=== PATIENT | male | born 1980 | race Caucasian/White ===

== ENCOUNTER 2021-10-30 14:38 | Emergency (ER) | payer BC, SELFPAY ==
[2021-10-30] VITALS (9 sets, daily range): BP systolic 161–189; BP diastolic 85–115; PULSE 85–101; RESP 17–23; TEMP 36.4; O2SAT 97–98; BMI 48.6
--- NOTE | 2021-10-30 15:04 | EKG12_ITS ---
Test Reason : CP Blood Pressure : / mmHG Vent. Rate : 098 BPM Atrial Rate : 098 BPM P-R Int : 146 ms QRS Dur : 100 ms QT Int : 368 ms P-R-T Axes : 059 -55 098 degrees QTc Int : 469 ms Normal sinus rhythm Left anterior fascicular block T wave abnormality, consider lateral ischemia Abnormal ECG Confirmed by MARCO KENT, HRODA ([id number]), multimedia editor PRADIP ESQUIVEL ([id number]) on 11/03/2021 11:28:50 AM Referred By: ESTELLA/KALIN Confirmed By:RHODA LARA MD
[2021-10-30] MEDS: Aspirin 81 MG TAB.CHEW 324 MG PO (15:11)
--- NOTE | 2021-10-30 15:15 | RAD_ITS ---
STUDY: X-RAY CHEST REASON FOR EXAM: Male, 41 years old. Chest pain TECHNIQUE: Single AP portable view of the chest. COMPARISON: None. FINDINGS: EKG electrodes are seen. The lungs are clear and expanded. There is no demonstrated pleural abnormality. Normal size heart. Normal mediastinum and katie. Normal visualized pulmonary arteries. Normal visualized aortic arch and descending thoracic aorta. There are degenerative changes of the visualized thoracic spine. Normal visualized ribs, clavicles, and shoulders. There is no demonstrated abnormality of the visualized soft tissue structures of the upper abdomen. RAD/Chest 1 View (Portable) IMPRESSION: Normal x-ray examination of the chest. Electronically Signed: Alexi Foster MD at 15:25 EST , Service support ,
[2021-10-30 15:19] LABS: Absolute Lymphocyte Count 2.98 X10^3/uL (0.83-4.51); Absolute Neutrophil Count 3.8 X10^3/uL (2.0-7.7); Basophil# 0.07 X10^3/uL; Basophil% 0.9 % (0-1); Eosinophil# 0.17 X10^3/uL; Eosinophils% 2.2 % (0-5); Hematocrit 44.6 % (40-54); Hemoglobin 15.3 g/dL (13.0-16.5); Lymphocyte # 2.98 X10^3/ul (0.83-4.51); Lymphocyte % 38.7 % (19-41); Mean Corp Hgb Conc 34.3 g/dL (32-36); Mean Corpuscular Hgb 28.9 pg (27.0-32.0); Mean Corpuscular Volume 84.2 fL (80-94); Monocyte# 0.67 X10^3/uL; Monocyte% 8.7 % (0-10); NRBC Flagged by Analyzer 0 % (0-5); Neutrophil # 3.76 X10^3/uL (2.7-7.7); Neutrophil % 48.7 % (47-70); Platelet Count 187 K/mm3 (150-450); RBC Distribution Width SD 42.2 fl (35.1-43.9); White Blood Count 7.7 K/mm3 (4.4-11.0)
--- NOTE | 2021-10-30 15:26 | EDS_ITS ---
HPI History of Present Illness Chief Complaint: Chest Pain Detail of Chief Complaint: Chest tightness with dyspnea while walking Informant: patient Onset/Context/Timing Onset: Today (At approximately 1300.) Activity at onset: sudden and light activity Timing: Intermittent (Duration approximately 30 minutes) Quality: Positive for Pressure and Tightness Location: Substernal Current Severity: Gone Maximum Severity: Moderate Worsened By: Nothing Associated Symptoms: Positive for Diaphoresis and Dyspnea; Negative for Nausea, Vomiting, Cough, Fever, Lightheadedness and Acid Reflux Narrative Narrative: Patient is a 41-year-old male with history of hypertension, hypercholesterolemia on no medication who smokes several cigarettes per week. He states 5 years ago he smoked 1 pack/day. Mother had an DC at the age of 68. There is a family history of heart disease but he is unable to tell me at which age. He has had pressure-like sensation that has occurred a couple times a week recently. Those episodes he reports occurred at rest. He denies history of VTE. He has no risk factors for VTE. He denies leg pain, swelling discoloration. He denies symptoms of claudication. He denies history of hiatal hernia, peptic ulcer disease or GERD. He denies intolerance to greasy or fried foods. He denies radiation of the pain. He does not know whether he was pale. When the chest tightness started he went to his office. He sat down. He still was having difficulty breathing and removed his mask. Even after removing his mask he still had shortness of breath that lasted approximately 20 minutes. Prior Similar Symptoms: No Recent Illness/Hospitalization: No CVD Risk Factors: Positive for Hypertension, Hypercholesterolemia and Smoking; Negative for Diabetes and Family History 1' </=55 PE Risk Factors: Negative for Recent Travel/Surgery, Recent Immobilization, Prior DVT or PE and Cancer TAD Risk Factors: Positive for Hypertension; Negative for Marfan's Syndrome and Family History [facility] Medical History Hypertension Home Medications hydrochlorothiazide 12.5 mg PO DAILY #30 tab 10/30/21 [Rx Last Taken Unknown] lisinopril 10 mg PO DAILY #30 tab 10/30/21 [Rx Last Taken Unknown] Allergy/AdvReac Type Severity Reaction Status Date / Time No Known Allergies Allergy Verified 10/30/21 14:47 Social History (Updated 10/30/21 @ 15:[address] Yair Velarde MD) household members: spouse and children Smoking Status: Former smoker alcohol intake: current substance use type: does not use ROS ROS ED Constitutional Constitutional ED: Denies chills, fever(s), subjective, sweats or weight loss Eyes Eyes: Denies blurry vision, change in vision or diplopia ENT ENT ED: Denies ear pain, rhinorrhea or sore throat Cardiovascular Cardiovascular: Reports as per HPI; Denies orthopnea or paroxysmal nocturnal dyspnea Respiratory/Chest Respiratory/Chest: Reports dyspnea; Denies cough, dyspnea on exertion, orthopnea, paroxysmal nocturnal dyspnea or sputum Gastrointestinal Gastrointestinal: Denies abdominal pain, constipation, diarrhea, nausea or vomiting Genitourinary Genitourinary ED: Denies dysuria, hematuria or urinary frequency Musculoskeletal Musculoskeletal: Denies arthralgias, back pain, myalgias, neck pain or other Neurologic Neurologic: Denies headache(s), paresthesias or weakness Endocrine Endocrinology: Denies polydipsia, polyphagia or polyuria Hematologic/Lymphatic Hematologic/Lymphatic: Denies easy bleeding or easy bruising EXAM Physical Exam Const Vital Signs: 10/30/21 14:39 10/30/21 14:48 10/30/21 15:07 Temperature 97.6 F L Temperature Source Oral Pulse Rate 101 H Respiratory Rate 17 Respiratory Effort Normal Non-Labored Blood Pressure 168/115 H Blood Pressure Mean 132 Pulse Ox 98 Oxygen Delivery Method Room Air Room Air 10/30/21 15:08 10/30/21 15:38 10/30/21 16:02 Temperature Temperature Source Pulse Rate 93 87 Respiratory Rate 23 H 21 H Respiratory Effort Blood Pressure 177/103 H 161/94 H 169/105 H Blood Pressure Mean 127 116 126 Pulse Ox Oxygen Delivery Method Room Air Room Air Room Air 10/30/21 16:06 10/30/21 17:07 10/30/21 17:30 Temperature Temperature Source Pulse Rate 87 85 Respiratory Rate 17 23 H Respiratory Effort Blood Pressure 172/85 H 189/96 H 169/89 H Blood Pressure Mean 114 127 115 Pulse Ox 97 Oxygen Delivery Method Room Air Room Air 10/30/21 18:14 Temperature Temperature Source Pulse Rate 85 Respiratory Rate 21 H Respiratory Effort Blood Pressure 166/91 H Blood Pressure Mean 116 Pulse Ox Oxygen Delivery Method Room Air Positive well nourished, well developed and obese General Appearance ED: well developed and NAD; Negative for pallor Nutritional Appearance: obese HEENT Reports TM's clear and moist mucous membranes normocephalic and atraumatic Tympanic Membrane ED: Yes TM's clear Eyes PERRL and EOMs intact bilaterally General Eye ED: Negative for pale conjunctiva or scleral icterus Neck no lymphadenopathy, supple and no JVD Chest Wall inspection of chest normal and palpation of chest normal Resp normal respiratory effort and clear to auscultation bilaterally Effort and Inspection: respiratory distress Cardio regular rate, regular rhythm, S1 normal heart sound, S2 normal heart sound and no murmurs GI normal to inspection, nondistended, normoactive bowel sounds, soft to palpation, non-tender and non-distended; Negative for hepatosplenomegaly GI Narrative: There is no abdominal bruit. Back/Spine no CVA tenderness and no thoracic nor lumbar tenderness Extremity normal to inspection Extremity Narrative: There is no asymmetry, swelling, discoloration, leg vein distention, palpable cords or tenderness along the distribution of the deep venous system.. Patient does have hair on his toes and dorsal aspect of his foot. General Extremety ED: Negative for edema or tenderness General Extremity: Negative for edema Neuro oriented x3, CN's II-XII intact bilaterally and no sensory deficits noted Sensorium / Orientation: awake and alert Psych mental status grossly normal Skin no rashes or lesions noted and no wounds General Skin Exam: Negative for jaundice or pallor Heart Score History: Moderately Suspicious ECG: Nonspecific Repolarization Age: </= 45 years Risk Factors: >/= 3 Risk Factors or History of CAD Troponin: </= Normal Limit Score: 4 MDM MDM MDM Narrative Medical decision making narrative: Patient presents with chest discomfort. His chest discomfort was associated with elevated blood pressure. Need to evaluate for heart strain, cardiac ischemia, noncardiac etiology. Patient is had multiple elevated blood pressure readings. Will treat with clonidine to lower his blood pressure. Patient's creatinine is at baseline. He had an elevated creatinine May 2013. Since there is no evidence of endorgan injury blood pressure does not need to be lowered urgently. Lab Data Attestation: I reviewed the patient's lab results. Labs: Laboratory Results - last 24 hr 10/30/21 10/30/21 10/30/21 14:50 14:50 16:58 WBC 7.7 RBC 5.30 Hgb 15.3 Hct 44.6 MCV 84.2 MCH 28.9 MCHC 34.3 RDW Std Deviation 42.2 RDW Coeff of Ap 14.0 Plt Count 187 MPV 9.0 Immature Gran % (Auto) 0.800 Neut % (Auto) 48.7 Lymph % (Auto) 38.7 [place] % (Auto) 8.7 Eos % (Auto) 2.2 Baso % (Auto) 0.9 Absolute Neuts (auto) 3.8 Absolute Lymphs (auto) 2.98 Nucleated RBC % 0 Sodium 138 Potassium 3.9 Chloride 104 Carbon Dioxide 31.0 Anion Gap 3 L BUN 18 Creatinine 1.33 H Estim Creat Clear Calc 66.96 Est GFR (MDRD) Af Amer 75 Est GFR (MDRD) Non-Af 62 BUN/Creatinine Ratio 13.5 Glucose 119 H Calcium 9.9 Troponin I High Sens 8 7 With a negative delta and unremarkable EKG plan is to discharge to home. He is to follow-up with Dr. Brown. He was started on lisinopril and hydrochlorothiazide. Radiography Chest X-Ray - ED: 1 View and Read by ED Physician (Single view portable chest x- ray was interpreted as negative. Cardiac silhouette and size normal. Perihilar regions normal. Lung parenchyma is unremarkable. Osseous structures are unremarkable.) Diagnostic Testing: Clinical Impression(s) from Imaging Studies Chest X-Ray 10/30/21 15:15 IMPRESSION: Normal x-ray examination of the chest. Electronically Signed: Alexi Foster MD at 15:25 EST , Service support , EKG Initial EKG: Attestation: I personally reviewed and interpreted this EKG as follows: Interpretation: Sinus Rhythm (Ventricular rate is 98. MS interval is 146 ms. QRS duration 100 ms. QT duration 368 ms. [place] to the left and evidence of a left anterior fascicular block. There is nonspecific changes noted in the lat eral leads.) Discharge Plan Triage Chief Complaint: Chest Pain ED Provider: Yair Velarde Dx/Rx/DC Orders Clinical Impression: Chest pain, Hypertension, Hx of hypercholesterolemia Instructions: ED Chest Pain, Uncertain Cause, ED Hypertension New Begin Treatment Prescriptions: New lisinopril 10 mg tablet 10 mg PO DAILY Qty: 30 RF: 0 hydrochlorothiazide 12.5 mg tablet 12.5 mg PO DAILY Qty: 30 RF: 0 Primary Care Provider: Andres Torres Referrals: Artemio Brown DO [NON-STAFF] - 1 Week Andres Torres PA [Primary Care Provider] - Disposition Disposition: Home, Self Care
[2021-10-30 16:01] LABS: Anion Gap 3 (5-15); BUN 18 mg/dL (7-18); BUN/Creat Ratio 13.5 RATIO (10-20); Calcium,Total 9.9 mg/dL (8.5-10.1); Chloride 104 mmol/L (98-107); Creatinine, Serum 1.33 mg/dL (0.70-1.30); EST Glomerular Filtration Rate 62 mL/min (>60); Est Glom Filt Rate - Afr Amer 75 mL/min (>60); Estimated Creatinine Clearance 66.96 ml/min; Glucose 119 mg/dL (74-106); Potassium 3.9 mmol/L (3.5-5.1); Sodium Level 138 mmol/L (136-145); Troponin-I HS 8 pg/mL (3.0-78.0)
[2021-10-30] MEDS: Lisinopril 10 MG Tablet PO (16:13)
[2021-10-30 17:33] LABS: Troponin-I HS 7 pg/mL (3.0-78.0)
== END 2021-10-30 19:08 | disposition home or self-care (01) ==
PROVIDERS: Emergency Provider Emergency Medicine; PCP Physician Assistant; Visit Provider Emergency Medicine
DX: R07.89 Other chest pain (principal); Z68.42 Body mass index [BMI] 45.0-49.9, adult; R06.02 Shortness of breath; I10 Essential (primary) hypertension; E78.00 Pure hypercholesterolemia, unspecified; F17.210 Nicotine dependence, cigarettes, uncomplicated; Z79.899 Other long term (current) drug therapy; E66.9 Obesity, unspecified; Z82.49 Family history of ischemic heart disease and other diseases of the circulatory system
CPT/HCPCS: 71045; 80048; 84484; 85025; 93005; 99285; J7030; A4216

== ENCOUNTER 2022-01-09 16:35 | Emergency (ER) | payer BC, SELFPAY ==
[2022-01-09 16:36] VITALS: BP 141/93; PULSE 92; RESP 18; TEMP 36.8; O2SAT 98; BMI 47.0
[2022-01-09 17:14] VITALS: BP 141/93; PULSE 76; RESP 16; TEMP 36.8
--- NOTE | 2022-01-09 17:22 | EDS_ITS ---
HPI <HEYDI Yen - Last Filed: 01/09/22 18:17> History of Present Illness Chief Complaint: Abscess Narrative Narrative: 41-year-old male with history of hypertension, presents to the emergency department with an abscess to his right neck. He denies any fevers, chills denies any difficulty swallowing, breathing. Noticed that 3 to 4 days ago, patient states that he tried to open it however it made it worse. Patient states that there is slight drainage of yellow after he put a Band-Aid on it. Patient denies any injury to the area, denies any fevers chills nausea vomiting. PFSH <HEYDI Yen - Last Filed: 01/09/22 18:17> PFS Medical History Hypertension Home Medications hydrochlorothiazide 12.5 mg PO DAILY #30 tab 10/30/21 [Rx Last Taken Unknown] cephalexin 500 mg PO Q6 #40 cap 01/09/22 [Rx Last Taken Unknown] losartan [Cozaar] 25 mg PO 01/09/22 [History Last Taken Unknown] sulfamethoxazole-trimethoprim [Bactrim DS] 1 tab PO BID #20 tab 01/09/22 [Rx Last Taken Unknown] Allergy/AdvReac Type Severity Reaction Status Date / Time No Known Allergies Allergy Verified 01/09/22 16:37 Social History (Updated 10/30/21 @ 15:[address] Yair Velarde MD) household members: spouse and children Smoking Status: Light Smoker (<10/day) alcohol intake: current substance use type: does not use ROS <HEYDI Yne - Last Filed: 01/09/22 18:17> ROS ED ROS Narrative Constitutional: Negative for fever, chills, weight loss or gain, weakness Eyes: Negative for vision loss, vision change, double vision ENT: Negative for any hearing changes, ringing in the ears, dizziness, discharge, pain Nose: Negative for any congestion, runny nose, sinus pain, allergies Throat: Negative for any sore throat hoarseness, voice changes, Cardiovascular: Negative for any chest pain, tightness, palpitations, racing heartbeat Respiratory: Negative for any coughs, sputum production, coughing, hemoptysis, shortness of breath, shortness of breath on exertion, Gastrointestinal: Negative for any abdominal pain, nausea, vomiting, diarrhea, constipation, blood in stool, blood in vomit : Negative for any urinary frequency, incontinence, dysuria, retention, blood in urine Muscle skeletal: Negative for any muscle joint pain, stiffness, myalgias, arthralgias, neck pain, back pain Neurological: Negative for any headache, head injury, dizziness, syncope, numbness or tingling Skin: Negative for any rashes, itching, abrasions, lacerations. Positive for a abscess to the right lateral neck. Psychiatric: Negative for any depression, anxiety, stress, suicidal ideation, homicidal ideation Hematologic: Negative for any easy bruising, excessive bruising, easy bleeding Allergies: Negative for any eczema, hives, rash EXAM <HEYDI Yen - Last Filed: 01/09/22 18:17> Physical Exam Const Vital Signs: 01/09/22 16:36 01/09/22 17:14 01/09/22 18:07 Temperature 98.3 F 98.3 F 98.3 F Temperature Source Temporal Oral Oral Pulse Rate 92 76 83 Respiratory Rate 18 16 16 Blood Pressure 141/93 H 141/93 H 147/86 H Blood Pressure Mean 109 109 106 Pulse Ox 98 Oxygen Delivery Method Room Air 01/09/22 18:24 Temperature Temperature Source Pulse Rate 84 Respiratory Rate 16 Blood Pressure Blood Pressure Mean Pulse Ox Oxygen Delivery Method Positive well nourished and well developed General Appearance ED: well developed HEENT Reports moist mucous membranes Eyes PERRL and EOMs intact bilaterally Neck no lymphadenopathy Neck Narrative: Patient has a large abscess to the lateral aspect of the right side of the neck. This does have slight yellow drainage with surrounding cellulitis. Patient has no difficulty speaking, swallowing, negative for any stridor. Chest Wall inspection of chest normal Resp normal respiratory effort and clear to auscultation bilaterally Cardio regular rate GI normal to inspection, nondistended, normoactive bowel sounds, non-tender and non-distended Palpation: soft Back/Spine no CVA tenderness Extremity normal to inspection Neuro oriented x3 and CN's II-XII intact bilaterally Sensorium / Orientation: alert Psych mental status grossly normal Skin Skin Narrative: Abscess of the right lateral neck <Dr. Price Conrad DO - Last Filed: 01/09/22 19:53> Physical Exam Const Vital Signs: 01/09/22 16:36 01/09/22 17:14 01/09/22 18:07 Temperature 98.3 F 98.3 F 98.3 F Temperature Source Temporal Oral Oral Pulse Rate 92 76 83 Respiratory Rate 18 16 16 Blood Pressure 141/93 H 141/93 H 147/86 H Blood Pressure Mean 109 109 106 Pulse Ox 98 Oxygen Delivery Method Room Air 01/09/22 18:24 Temperature Temperature Source Pulse Rate 84 Respiratory Rate 16 Blood Pressure Blood Pressure Mean Pulse Ox Oxygen Delivery Method [facility] <Seven Ayala NP-C - Last Filed: 01/09/22 18:17> [facility] Narrative Medical decision making narrative: Patient appears well, patient appears nontoxic, vital signs are stable. Patient presents to the emergency department with a abscess to the right side of his neck. This abscess appears to be superficial, negative for any deep tissue infection, negative for any respiratory issues. This area was cleansed, I was able to make a cross incision got minimal of yellow drainage out. I was able break up loculations with hemostats. Patient tolerated well, patient will be treated with Keflex, Bactrim and instructed to keep the area clean, dry and to use warm compresses. Patient given strict return precautions to return for any worsening redness, difficulty breathing, fever chills nausea vomiting. Patient stable for discharge Lab Data Attestation: I reviewed the patient's lab results. <Dr. Price Conrad, DO - Last Filed: 01/09/22 19:53> [facility] Narrative Medical decision making narrative: Patient was seen with me. I did a [id number] examination with the patient. I agree with the history and physical examination. I was available during the procedure performed. Patient presents with an abscess to the right side of his neck that has been getting worse over the past few days. Patient denies any fevers or chills. Patient denies any discharge or drainage. Patient denies any difficulty breathing or difficulty swallowing. Vital signs are stable. Patient is afebrile. Patient is in no acute distress. Skin is warm and dry. There is tenderness, edema, and erythema over the right lateral neck. There is some mild fluctuance. There is no discharge or drainage. There is some induration noted. There is no JVD or lymphadenopathy noted. Heart was regular rate and rhythm. Lungs are clear and equal bilaterally. Cranial nerves II through XII are intact. There are no focal motor or sensory deficits noted. The area was cleaned and anesthetized 1% lidocaine locally. The area was opened and purulent drainage was expressed. Loculations were broken up. Patient tolerated the procedure well. Patient was given a dose of Keflex and Bactrim here. Patient was given prescriptions for Bactrim and Keflex. Patient was instructed to follow-up with his primary care physician in 5 to 7 days. Patient understood and was agreeable with the plan. All questions were answered. Procedures <HEYDI Yen - Last Filed: 01/09/22 18:17> Other Procedures Procedure(s): Patient had a large abscess on the lateral aspect of his right neck. This area was cleansed with ChloraPrep, anesthetized with lidocaine with epinephrine. I was able to place a cross incision cross incision midline of the abscess. I was able to get moderate amount of yellow drainage, I was then able to use hemostats and break up inoculations within the abscess. Patient tolerated well. Discharge Plan Triage Chief Complaint: Abscess ED Midlevel Provider: Seven Ayala ED Provider: Price Conrad Dx/Rx/DC Orders Clinical Impression: Abscess Instructions: Abscess Drainage, ED Abscess Incision And Drainage Prescriptions: New sulfamethoxazole-trimethoprim [Bactrim DS] 800-160 mg tablet 1 tab PO BID Qty: 20 RF: 0 cephalexin 500 mg capsule 500 mg PO Q6 Qty: 40 RF: 0 No Action hydrochlorothiazide 12.5 mg tablet 12.5 mg PO DAILY Qty: 30 RF: 0 losartan [Cozaar] 25 mg tablet 25 mg PO RF: 0 Primary Care Provider: Artemio Brown Referrals: Artemio Brown DO [Primary Care Provider] - Activity Restrictions/Additional Instructions: Please keep the area clean and dry, please use warm compress Print Language: French Disposition Disposition: Home, Self Care Discharge Date/Time: 01/09/22 18:25
[2022-01-09 18:07] VITALS: BP 147/86; PULSE 83; RESP 16; TEMP 36.8
[2022-01-09] MEDS: Lidocaine 1% /Epi 1:100 (20ml) 20 ML Vial 5 ML INFILT (18:08)
[2022-01-09] MEDS: Smz/Tmp Ds Tablet 1 TABLET PO (18:20)
[2022-01-09] MEDS: Cephalexin 250 MG Capsule 500 MG PO (18:20)
[2022-01-09 18:24] VITALS: PULSE 84; RESP 16
== END 2022-01-09 18:25 | disposition home or self-care (01) ==
PROVIDERS: Emergency Provider Emergency Medicine; PCP Student in an Organized Health Care Education/Training Program; Visit Provider Emergency Medicine
DX: L02.11 Cutaneous abscess of neck (principal); I10 Essential (primary) hypertension; F17.200 Nicotine dependence, unspecified, uncomplicated; Z79.899 Other long term (current) drug therapy
CPT/HCPCS: 10061; 10060; 99283